=== PATIENT | female | born 2000 | race Caucasian/White ===

== ENCOUNTER 2018-01-03 21:24 | Emergency (ER) | payer OTHER ==
[2018-01-03 21:32] VITALS: BP 110/60; PULSE 88; TEMP 97.7; BMI 21.6
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
== END 2018-01-04 01:20 | disposition home or self-care (01) ==
LOC: JERFT 21:24
DX: S00.81XA Abrasion of other part of head, initial encounter (principal); Y04.0XXA Assault by unarmed brawl or fight, initial encounter; Y93.89 Activity, other specified; Y92.118 Other place in children's home and orphanage as the place of occurrence of the external cause
CPT/HCPCS: 99281-25